=== PATIENT | female | born 1980 ===

== ENCOUNTER 2017-01-06 09:28 | Emergency (ER) | payer OTHER ==
[2017-01-06 10:03] VITALS: TEMP 98.3
[2017-01-06 11:07] LABS: RBC URINE 11 /hpf (0-3); URINE BILIRUBIN NEGATIVE (NEGATIVE); URINE BLOOD 2+ (NEGATIVE); URINE COLOR Yellow (YELLOW); URINE GLUCOSE (UA) NORMAL (Normal); URINE KETONE NEGATIVE (NEGATIVE); URINE LEUKOCYTE ESTERASE NEG Leu/uL (Negative); URINE PROTEIN NEGATIVE (NEGATIVE); URINE UROBILINOGEN NORMAL mg/dL (0.2-1.0); WBC URINE 1 /hpf (0-5)
--- NOTE | 2017-01-06 11:40 | C.PDOC ---
History Of Present Illness 36 year old female with a history of glaucoma, presents to the ED with complaints of pain to the back of her head and right neck s/p slipping and falling 4 days ago. Patient states she hit her head and has had intermittent nausea and vomiting since. She has been taking Tylenol with no relief but nothing today and denies LOC, change in vision, dizziness, headache, or any other complaints at this time. - HPI Time Seen by Provider: 01/06/17 10:35 Chief Complaint (Nursing): Trauma Past Medical History Vital Signs: Last Vital Signs Temp 98.3 F 01/06/17 10:02 Pulse 90 01/06/17 10:02 Resp 16 01/06/17 10:02 BP 120/80 01/06/17 10:02 Pulse Ox 97 01/06/17 10:02 Family History: States: Unknown Family Hx - Social History Hx Alcohol Use: No Hx Substance Use: No - Immunization History Hx Tetanus Toxoid Vaccination: No Hx Influenza Vaccination: Yes (04/2016) Hx Pneumococcal Vaccination: No ED Course And Treatment O2 Sat by Pulse Oximetry: 97
--- NOTE | 2017-01-06 11:44 | C.PDOC ---
History Of Present Illness 36 year old female with a history of glaucoma, presents to the ED with complaints of pain to the back of her head and neck s/p slipping and falling 4 days ago. PT notes that she was cleaning the stairs and slipped hitting the back of her head. Pain localized to the area of trauma. No LOC . (+) intermittent nausea and vomiting. She has been taking Tylenol. Denies change in vision, dizziness, or any other complaints at this time. - HPI Time Seen by Provider: 01/06/17 10:35 Chief Complaint (Nursing): Trauma History Per: Patient History/Exam Limitations: no limitations Onset/Duration Of Symptoms: Days Severity: Mild Past Medical History Reviewed: Historical Data, Nursing Documentation, Vital Signs Vital Signs: Last Vital Signs Temp 98.3 F 01/06/17 13:07 Pulse 72 01/06/17 13:07 Resp 18 01/06/17 13:07 BP 118/84 01/06/17 13:07 Pulse Ox 98 01/06/17 13:07 - Medical History PMH: No Chronic Diseases Family History: States: Unknown Family Hx - Social History Hx Alcohol Use: No Hx Substance Use: No - Immunization History Hx Tetanus Toxoid Vaccination: No Hx Influenza Vaccination: Yes (04/2016) Hx Pneumococcal Vaccination: No Review Of Systems Except As Marked, All Systems Reviewed And Found Negative. Constitutional: Negative for: Fever, Chills, Weakness Eyes: Negative for: Vision Change Gastrointestinal: Positive for: Nausea, Vomiting Musculoskeletal: Positive for: Neck Pain, Other (+pain to back of head). Negative for: Shoulder Pain, Back Pain Neurological: Negative for: Weakness, Numbness, Headache, Dizziness Physical Exam - Physical Exam Appears: Non-toxic, No Acute Distress Skin: Normal Color, Warm, Dry Head: Normacephalic, Tenderness (occipatal), No Swelling, No Abrasion Eye(s): bilateral: Normal Inspection, PERRL, EOMI Ear(s): Bilateral: Normal Nose: Normal Oral Mucosa: Moist Neck: Normal ROM, No Midline Cervical Tenderness, Paracervical Tenderness (+ Bilateral paracervical tenderness), No Step Off Deformity, Supple Chest: Symmetrical Cardiovascular: Rhythm Regular Respiratory: Normal Breath Sounds, No Accessory Muscle Use Extremity: Normal ROM Neurological/Psych: Oriented x3, Normal Speech, Normal Cognition ED Course And Treatment O2 Sat by Pulse Oximetry: 97 (Room air) Pulse Ox Interpretation: Normal - CT Scan/US CT Head w/o contrast Other Rad Studies (CT/US): Read By Radiologist, Radiology Report Reviewed CT/US Interpretation: FINDINGS: HEMORRHAGE: No intracranial hemorrhage. BRAIN : No mass effect or edema. No atrophy or chronic microvascular ischemic changes. VENTRICLES: Unremarkable. No hydrocephalus. CALVARIUM: Unremarkable. PARANASAL SINUSES: Unremarkable as visualized. No significant inflammatory changes. MASTOID AIR CELLS: Unremarkable as visualized. No inflammatory changes. OTHER FINDINGS: None. IMPRESSION: Normal CT of the Head. No intracranial hemorrhage. CT Cervical Spine w/o contrast Other Rad Studies (CT/US): Read By Radiologist, Radiology Report Reviewed CT/US Interpretation: FINDINGS: VERTEBRAE: No fracture. Normal alignment. No destructive bony lesion. DISCS/SPINAL CANAL/NEURAL FORAMINA: No significant central canal or neural foraminal stenosis. Discs heights are grossly preserved. PARASPINAL SOFT TISSUES: Unremarkable. OTHER FINDINGS: None. IMPRESSION: Unremarkable CT of the cervical spine. Progress Note: CT Head w/o contrast, CT Cervical Spine w/o contrast, and Urinalysis ordered and reviewed. PT refused pain medication. Upon reevaluation , patient is resting comfortably, is tolerating PO, has no headache, or visual changes. Patient was instructed to follow up with physician/clinic in 1-2 days. Disposition - Disposition Referrals: [facility] [Outside] Disposition: HOME/ ROUTINE Disposition Time: 13:00 Condition: STABLE Additional Instructions: Vaya a mercer mdico o la clnica en 2-5 lisa sin falta, para mas evaluacin. Volver a la praneeth de emergencia en cualquier momento si los sntomas persisten o empeoran. Prescriptions: Acetaminophen [Tylenol 325mg tab] 650 mg PO Q4 PRN #20 tab PRN Reason: Pain, Mild (1-3) Instructions: Head Injury (ED) - Clinical Impression Clinical Impression: Concussion with no loss of consciousness - PA / [employer] / Resident Statement MD/DO has reviewed & agrees with the documentation as recorded. - Scribe Statement The provider has reviewed the documentation as recorded by the Scribe Gayathri Sparks. All medical record entries made by the Scribe were at my direction and personally dictated by me. I have reviewed the chart and agree that the record accurately reflects my personal performance of the history, physical exam, medical decision making, and the department course for this patient. I have also personally directed, reviewed, and agree with the discharge instructions and disposition.
--- NOTE | 2017-01-06 12:04 | CT ---
PROCEDURE: CT Cervical Spine without contrast HISTORY: <trauma> COMPARISON: None available. TECHNIQUE: Axial computed tomography images were obtained of the cervical spine without the use of intravenous contrast. Coronal and sagittal reformatted images were created and reviewed. Radiation dose: Total exam DLP = 272 mGy-cm. This CT exam was performed using one or more of the following dose reduction techniques: Automated exposure control, adjustment of the mA and/or kV according to patient size, and/or use of iterative reconstruction technique. FINDINGS: VERTEBRAE: No fracture. Normal alignment. No destructive bony lesion. DISCS/SPINAL CANAL/NEURAL FORAMINA: No significant central canal or neural foraminal stenosis. Discs heights are grossly preserved. PARASPINAL SOFT TISSUES: Unremarkable. OTHER FINDINGS: None. IMPRESSION: Unremarkable CT of the cervical spine.
--- NOTE | 2017-01-06 12:09 | CT ---
PROCEDURE: CT HEAD WITHOUT CONTRAST. HISTORY: trauma COMPARISON: None available. TECHNIQUE: Axial computed tomography images were obtained through the head/brain without intravenous contrast. Radiation dose: Total exam DLP = 712.51 mGy-cm. This CT exam was performed using one or more of the following dose reduction techniques: Automated exposure control, adjustment of the mA and/or kV according to patient size, and/or use of iterative reconstruction technique. FINDINGS: HEMORRHAGE: No intracranial hemorrhage. BRAIN: No mass effect or edema. No atrophy or chronic microvascular ischemic changes. VENTRICLES: Unremarkable. No hydrocephalus. CALVARIUM: Unremarkable. PARANASAL SINUSES: Unremarkable as visualized. No significant inflammatory changes. MASTOID AIR CELLS: Unremarkable as visualized. No inflammatory changes. OTHER FINDINGS: None. IMPRESSION: Normal CT of the Head. No intracranial hemorrhage.
[2017-01-06 13:08] VITALS: BP 118/84; PULSE 72; RESP 18
[2017-01-06 16:22] VITALS: O2SAT 97
== END 2017-01-06 13:08 | disposition home or self-care (01) ==
LOC: C.ER 09:28
DX: S06.0X0A Concussion without loss of consciousness, initial encounter (principal); W01.0XXA Fall on same level from slipping, tripping and stumbling without subsequent striking against object, initial encounter

== ENCOUNTER 2017-07-05 21:51 | Emergency (ER) | payer OTHER ==
[2017-07-05 22:01] VITALS: BP 127/85; PULSE 95; RESP 20; TEMP 98.7; O2SAT 97
--- NOTE | 2017-07-05 22:17 | C.PDOC ---
History Of Present Illness 37 y/o female presents to the ER with a mild right facial droop that involves right forehead present from 15 hours ago. Patient denies any new headaches. Time Seen by Provider: 07/05/17 22:14 Chief Complaint (Nursing): Weakness/Neurological Deficit History Per: Patient History/Exam Limitations: no limitations Onset/Duration Of Symptoms: Hrs (15 hours) Current Symptoms Are (Timing): Still Present Seizure Or Post-ictal Symptoms: None Possible Causative Factor(s): Other (Not known) Fall Associated With With Symptoms: No Recent travel outside of the [place]: No - Symptoms Of CVA Recent Head Trauma: No Past Medical History Reviewed: Historical Data, Nursing Documentation, Vital Signs Vital Signs: Last Vital Signs Temp 98.7 F 07/05/17 22:00 Pulse 95 H 07/05/17 22:00 Resp 20 07/05/17 22:00 BP 127/85 07/05/17 22:00 Pulse Ox 97 07/05/17 23:02 - Medical History PMH: No Chronic Diseases Surgical History: No Surg Hx Family History: States: Unknown Family Hx - Social History Hx Alcohol Use: No Hx Substance Use: No - Immunization History Hx Tetanus Toxoid Vaccination: No Hx Influenza Vaccination: Yes (04/2016) Hx Pneumococcal Vaccination: No Review Of Systems Except As Marked, All Systems Reviewed And Found Negative. Constitutional: Negative for: Fever, Chills, Weakness Eyes: Negative for: Pain, Vision Change Neurological: Positive for: Other (Mild right facial droop). Negative for: Weakness, Numbness, Headache Physical Exam - Physical Exam Appears: Non-toxic, No Acute Distress Skin: Normal Color, Warm, Dry Head: Atraumatic, Normacephalic Eye(s): bilateral: Normal Inspection, EOMI, right: Other (mild right lid lag) Ear(s): Left: Normal, Right: Other (no vesicles in right ear) Oral Mucosa: Moist Chest: Symmetrical Cardiovascular: Rhythm Regular Respiratory: Normal Breath Sounds, No Rales, No Rhonchi, No Wheezing Neurological/Psych: Oriented x3, Normal Speech, Normal Cognition Other Neurological Findings: Facial Palsy (Mild right, involves right forehead) ED Course And Treatment O2 Sat by Pulse Oximetry: 97 (room air) Progress Note: Pepcid and prednisone administered. Medical Decision Making Medical Decision Making: R facial droop without new headache, involves forehead, mild, c/w Mercado's Palsy Disposition Doctor Will See Patient In The: Office Counseled Patient/Family Regarding: Studies Performed, Diagnosis - Disposition Referrals: [facility] [Outside] [facility]Outside[facility] Melvin Mobley MD [Staff Provider] - Juve Rai MD [Staff Provider] - Disposition: HOME/ ROUTINE Disposition Time: 22:18 Condition: GOOD Additional Instructions: prednisona bajando en dosis emmett 2 semanas pepcid 20 mg en la noche para prevenir inflammacion' del estomago debido al prednisona Got[place] del alonzo derecho antes de acostar para mantener lubricado Nelda el alonzo con cinta en la noche para que no seca la conrnea Sigue con el Neurologo- Dr. Rai o' Dr. Mobley- Neurologist, para seguir mercer evaluacion' Sigue en nuestro [facility] (gratis) subha necessario. Prescriptions: Prednisone [Deltasone] 20 mg PO DAILY #23 tablet Instructions: Mercado Palsy (ED) Forms: [employer] (Yakut) Print Language: SOMALI - Clinical Impression Clinical Impression: Facial droop - Scribe Statement The provider has reviewed the documentation as recorded by the Ellisibkolton Cao Provider Attestation: All medical record entries made by the Scribe were at my direction and personally dictated by me. I have reviewed the chart and agree that the record accurately reflects my personal performance of the history, physical exam, medical decision making, and the department course for this patient. I have also personally directed, reviewed, and agree with the discharge instructions and disposition.
== END 2017-07-05 22:32 | disposition home or self-care (01) ==
LOC: C.ER 21:51
DX: R29.810 Facial weakness (principal)

== ENCOUNTER 2018-01-13 09:23 | Emergency (ER) | payer OTHER ==
[2018-01-13 10:13] VITALS: RESP 18
--- NOTE | 2018-01-13 10:50 | C.PDOC ---
History Of Present Illness 37 y/o female presents to ED with complaints of right sided pelvic pain since yesterday associated with nausea and headache. Patient states she had similar symptoms 1 year ago but resolved on its own. Patient reports she took ibuprofen with no improvement and admits to constipation and vaginal pain when having sexual intercourse. Patient denies fever, chills, dysuria, vaginal bleeding, vaginal discharge or any other complaints at this time. Time Seen by Provider: 01/13/18 10:15 Chief Complaint (Nursing): Abdominal Pain History Per: Patient History/Exam Limitations: no limitations Onset/Duration Of Symptoms: Days Current Symptoms Are (Timing): Still Present Past Medical History Reviewed: Historical Data, Nursing Documentation, Vital Signs Vital Signs: Last Vital Signs Temp 97.7 F 01/13/18 14:00 Pulse 71 01/13/18 14:00 Resp 18 01/13/18 14:00 BP 120/82 01/13/18 14:00 Pulse Ox 99 01/13/18 14:34 - Medical History PMH: No Chronic Diseases Other Surgeries: Hysterectomy Family History: States: No Known Family Hx - Social History Hx Alcohol Use: No Hx Substance Use: No - Immunization History Hx Tetanus Toxoid Vaccination: No Hx Influenza Vaccination: Yes (04/2016) Hx Pneumococcal Vaccination: No Review Of Systems Constitutional: Negative for: Fever, Chills Gastrointestinal: Positive for: Nausea. Negative for: Vomiting, Abdominal Pain Genitourinary: Positive for: Pelvic Pain. Negative for: Vaginal Discharge, Vaginal Bleeding Skin: Negative for: Rash Neurological: Positive for: Headache Physical Exam - Physical Exam Appears: Non-toxic, No Acute Distress Skin: Warm, Dry, No Rash Head: Atraumatic, Normacephalic Oral Mucosa: Moist Neck: Normal ROM, Supple Cardiovascular: Rhythm Regular Respiratory: Normal Breath Sounds, No Rales, No Rhonchi, No Wheezing Gastrointestinal/Abdominal: Soft, Tenderness (Right and Left pelvic), No Guarding, No Rebound Back: CVA Tenderness (Mild left), No Paraspinal Tenderness Pelvic: No Vaginal Bleeding, No Vaginal Discharge, Cervical Motion Tenderness ( mild), Adnexal Tenderness (right more than left) Extremity: Normal ROM, No Calf Tenderness, Capillary Refill (<2 seconds) Neurological/Psych: Oriented x3, Normal Speech, Normal Cognition, Normal Motor, Normal Sensation ED Course And Treatment O2 Sat by Pulse Oximetry: 99 (RA) Pulse Ox Interpretation: Normal Medical Decision Making Medical Decision Making: Plan: UA, Urine preg and Pelvic Exam ordered discussed with Dr Andrade; may treat now with nsaids; 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 Disposition Counseled Patient/Family Regarding: Studies Performed, Diagnosis, Need For Followup, Rx Given - Disposition Referrals: [facility] [place] [Outside] Disposition: HOME/ ROUTINE Disposition Time: 15:13 Condition: GOOD Additional Instructions: Anthony un seguimiento en la clnica mdica de [place] para garcia a un gineclogo esta semana para hablar sobre los quistes ovricos y el mejor tratamiento. [place] ibuprofeno para el dolor segn lo recetado. Regrese a la praneeth de urgencias por un dolor que empeora. 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 - Scribe Statement The provider has reviewed the documentation as recorded by the Scribkolton Chaudhry All medical record entries made by the Scribe were at my direction and personally dictated by me. I have reviewed the chart and agree that the record accurately reflects my personal performance of the history, physical exam, medical decision making, and the department course for this patient. I have also personally directed, reviewed, and agree with the discharge instructions and disposition.
[2018-01-13 11:51] LABS: HCG,QUALITATIVE URINE NEGATIVE (NEGATIVE)
[2018-01-13 11:56] LABS: SQUAMOUS EPITHIAL 1 /hpf (0-5); URINE BACTERIA RARE (<OCC); URINE BILIRUBIN NEGATIVE (NEGATIVE); URINE BLOOD 1+ (NEGATIVE); URINE CLARITY Clear (Clear); URINE COLOR Yellow (YELLOW); URINE GLUCOSE (UA) NORMAL (Normal); URINE LEUKOCYTE ESTERASE NEG Leu/uL (Negative); URINE PROTEIN NEGATIVE (NEGATIVE); URINE UROBILINOGEN NORMAL mg/dL (0.2-1.0)
--- NOTE | 2018-01-13 13:25 | US ---
Pelvic ultrasound History: Pelvic pain. Comparison: None available. Technique: Real-time sonography was performed through the pelvis. Findings: Patient status post prior hysterectomy. Cervix measures 3.7 centimeters. Right ovary: 5.8 x 4.9 x 5.2 centimeters. Normal flow. Hypoechoic cyst measuring 4.8 x 3.9 x 4.1 centimeters. Left ovary: 4.5 x 2.6 x 3.3 centimeters. Normal flow. Echogenic foci seen at the level of the left ovary measuring 1.7 x 1.6 x 1.7 centimeters. This is of uncertain clinical etiology and may represent a dermoid lesion. Correlation with noncontrast CT scan through the pelvis would be helpful for further evaluation if clinically indicated. Impression: 1.7 centimeter echogenic foci noted at the level of the left ovary/adnexa which may represent a dermoid lesion. Correlation with noncontrast CT scan through the pelvis may be helpful if clinically indicated. 4.8 centimeter right ovarian cyst.
[2018-01-13 14:11] VITALS: BP 120/82; PULSE 71; TEMP 97.7
[2018-01-13 14:34] VITALS: O2SAT 99
== END 2018-01-13 15:34 | disposition home or self-care (01) ==
LOC: C.ER 09:23
DX: N83.201 Unspecified ovarian cyst, right side (principal)
CPT/HCPCS: 76830; 76856; 81001; 84703; 87086; 96372; 99285; J1885